=== PATIENT | female | born 1995 | race Native Hawaiian/Other Pacific Islander ===

== ENCOUNTER 2020-03-02 04:56 | Day surgery (SDC) | payer MEDICAID | END 2020-03-02 06:05 | disposition home or self-care (01) | LOC: SURGERY 04:56 | PROVIDERS: ATTEND Specialist | PROC: 0SBD4ZZ Excision of Left Knee Joint, Percutaneous Endoscopic Approach (ICD-10-PCS; principal; 2020-03-02) | DX: S83.282A Other tear of lateral meniscus, current injury, left knee, initial encounter (principal) ==